=== PATIENT | female | born 1945 | race Caucasian/White ===

== ENCOUNTER 2021-09-02 06:03 | Inpatient (IN) | payer OTHER ==
[2021-08-31 18:26] VITALS: BMI 24.0
[2021-09-02] MEDS ORDERED: MIDAZOLAM HCL 2 MG/2 ML SINGLE DOSE VIAL ONE (06:46)
[2021-09-02] MEDS ORDERED: ROPIVACAINE HCL 0.5% 30ML VIAL ONE (06:46)
[2021-09-02] MEDS ORDERED: DEXAMETHASONE SOD PHOSPHATE 10 MG/1 ML VIAL ONE (06:46)
[2021-09-02] MEDS ORDERED: PROPOFOL 20 ML ONE ×2 (07:19)
[2021-09-02] MEDS ORDERED: SUCCINYLCHOLINE CHLORIDE 200 MG/10 ML SYRINGE ONE (07:19)
[2021-09-02] MEDS ORDERED: ePHEDrine SULFATE 50 MG/1 ML AMPULE ONE (07:24)
[2021-09-02] MEDS ORDERED: TRANEXAMIC ACID 1000 MG/10 ML VIAL ONE (07:29)
[2021-09-02] MEDS ORDERED: VANCOMYCIN 1,000 MG VIAL (RESTRICTED TO ID ONLY) ONE (07:29)
[2021-09-02] MEDS ORDERED: ONDANSETRON 4 MG/2 ML VIAL IVPUSH PRN (07:38)
[2021-09-02] MEDS ORDERED: MAGNESIUM HYDROX 2400MG/30ML ORAL SUSPENSION 30 ML CUP PO PRN (07:38)
[2021-09-02] MEDS ORDERED: MAG HYDROX/AL HYDROX/SIMETH 30 ML UNIT-DOSE CUP PO PRN (07:38)
[2021-09-02] MEDS ORDERED: LACTATED RINGERS SOLUTION 1,000 ML IV SCH (07:45)
[2021-09-02] MEDS ORDERED: BUPIVACAINE LIPOSOME/PF (EXPAREL) 266 MG/20 ML VIAL ONE (07:58)
[2021-09-02] MEDS: ACETAMINOPHEN 1000 MG/100 ML VIAL IVPB ONE ×2 (11:12→12:19)
[2021-09-02] MEDS ORDERED: oxyCODONE HCL 5 MG TABLET PO PRN (11:17)
[2021-09-02] MEDS ORDERED: HYDROmorphone HCL CARPU-JECT 1 MG/1 ML DISP.SYRIN IVPUSH PRN (11:17)
[2021-09-02] MEDS ORDERED: HYDROmorphone HCL/PF 1 MG/ML VIAL ONE (11:27)
[2021-09-02] MEDS ORDERED: HYDROmorphone HCL/PF 1 MG/ML VIAL IVPUSH PRN (12:05)
[2021-09-02] MEDS: MULTIVITAMINS (DAILY MVI) TABLET (FP) PO SCH (12:19)
[2021-09-02] MEDS: PANTOPRAZOLE 40 MG TABLET PO SCH (12:19)
[2021-09-02] MEDS: SENNOSIDES/DOCUSATE COMBO (SENNA PLUS) TABLET (UD) PO SCH ×2 (12:19→22:04)
[2021-09-02] MEDS: oxyCODONE HCL 5 MG TABLET PO PRN ×3 (12:43→19:52)
[2021-09-02] MEDS ORDERED: SUMATRIPTAN SUCCINATE 6 MG/0.5 ML VIAL SQ PRN (13:57)
[2021-09-02] MEDS ORDERED: DEXTROSE 5%-WATER - 50 ML IVPB ONE ×2 (15:59→22:00)
[2021-09-02] MEDS ORDERED: ceFAZolin SODIUM 1 GM VIAL ONE ×2 (15:59→22:00)
[2021-09-02] MEDS: BENZOCAINE/MENTH/CETYLPYRD CL 1 EACH LOZENGE MM PRN ×2 (16:07→19:53)
[2021-09-02] MEDS: CEFAZOLIN 2 GM in DEXTROSE 5%-WATER - 50 ML IVPB SCH (16:07)
[2021-09-02] MEDS ORDERED: VANCOMYCIN 1 GM in D5W (PRE-DOCKED) 1,000 MG/250 ML IVPB ONE (20:25)
[2021-09-02] MEDS ORDERED: PATIENT'S OWN MEDICATION (NON-FORMULARY) (Zolpidem Tartrate [Ambien] 10 MG Tablet) PO SCH (22:00)
[2021-09-02] MEDS: ZOLPIDEM TARTRATE 5 MG TABLET PO PRN (22:04)
[2021-09-02] MEDS: oxyCODONE HCL 10 MG SUSTAINED ACTING TABLET PO SCH (22:04)
[2021-09-03] MEDS: oxyCODONE HCL 5 MG TABLET PO PRN ×6 (00:58→21:36)
[2021-09-03] MEDS: CEFAZOLIN 2 GM in DEXTROSE 5%-WATER - 50 ML IVPB SCH ×2 (00:58→09:37)
[2021-09-03] MEDS ORDERED: ACETAMINOPHEN 325 MG TABLET (FP) PO PRN (08:37)
[2021-09-03 08:59] LABS: HEMATOCRIT 37.2 % (32.4-45.2); HEMOGLOBIN 12.3 GM/dl (10.7-15.3); MCH 29.1 pg (25.7-33.7); MCHC 33.1 g/dl (32.0-36.0); MEAN CELL VOLUME 87.9 fl (80-96); MEAN PLT VOLUME 10.1 fl (7.5-11.1); PLATELET COUNT 228 10^3/uL (134-434); RBC 4.24 M/mm3 (3.60-5.2); RDW 14.1 % (11.6-15.6)
[2021-09-03 09:03] LABS: CALCIUM 9.5 mg/dl (8.5-10)
[2021-09-03] MEDS ORDERED: DEXTROSE 5%-WATER - 50 ML IVPB ONE (09:23)
[2021-09-03] MEDS ORDERED: ceFAZolin SODIUM 1 GM VIAL ONE (09:23)
[2021-09-03] MEDS: ASPIRIN 325 MG ENTERIC COATED TABLET (FP) PO SCH (09:35)
[2021-09-03] MEDS: PANTOPRAZOLE 40 MG TABLET PO SCH (09:35)
[2021-09-03] MEDS: SENNOSIDES/DOCUSATE COMBO (SENNA PLUS) TABLET (UD) PO SCH ×2 (09:36→21:35)
[2021-09-03] MEDS: oxyCODONE HCL 10 MG SUSTAINED ACTING TABLET PO SCH ×3 (09:38→21:36)
[2021-09-03] MEDS: MULTIVITAMINS (DAILY MVI) TABLET (FP) PO SCH (09:41)
[2021-09-03] MEDS ORDERED: POTASSIUM CHLORIDE TABS 20 MEQ TABLET.ER (FP) PO SCH (10:00)
[2021-09-03] MEDS ORDERED: FUROSEMIDE 20 MG TABLET (FP) PO SCH (10:00)
[2021-09-03] MEDS: ACETAMINOPHEN 325 MG TABLET (FP) PO PRN ×2 (11:04→22:33)
[2021-09-03] MEDS: ZOLPIDEM TARTRATE 5 MG TABLET PO PRN (21:35)
[2021-09-03] MEDS ORDERED: metoPROLOL SUCCINATE 25 MG TAB.SR.24H (FP) PO ONE (22:21)
[2021-09-04] MEDS: oxyCODONE HCL 5 MG TABLET PO PRN ×5 (00:45→19:40)
[2021-09-04] MEDS: ACETAMINOPHEN 325 MG TABLET (FP) PO PRN (06:30)
[2021-09-04 08:19] LABS: CALCIUM 8.8 mg/dl (8.5-10)
[2021-09-04 08:25] LABS: HEMATOCRIT 36.4 % (32.4-45.2); HEMOGLOBIN 12.1 GM/dl (10.7-15.3); MCH 28.8 pg (25.7-33.7); MCHC 33.1 g/dl (32.0-36.0); MEAN CELL VOLUME 87.1 fl (80-96); PLATELET COUNT 223 10^3/uL (134-434); RBC 4.18 M/mm3 (3.60-5.2); RDW 14.1 % (11.6-15.6); WHITE BLOOD COUNT 9.8 K/mm3 (4.0-10.8)
[2021-09-04] MEDS ORDERED: PT OWN MED DRAWER 7, Y5N ONE ×2 (09:12→09:33)
[2021-09-04] MEDS: ASPIRIN 325 MG ENTERIC COATED TABLET (FP) PO SCH (09:39)
[2021-09-04] MEDS: SENNOSIDES/DOCUSATE COMBO (SENNA PLUS) TABLET (UD) PO SCH ×2 (09:39→22:19)
[2021-09-04] MEDS: MULTIVITAMINS (DAILY MVI) TABLET (FP) PO SCH (09:39)
[2021-09-04] MEDS: PANTOPRAZOLE 40 MG TABLET PO SCH (09:40)
[2021-09-04] MEDS: oxyCODONE HCL 10 MG SUSTAINED ACTING TABLET PO SCH ×2 (09:41→22:19)
[2021-09-04] MEDS ORDERED: FUROSEMIDE 20 MG TABLET (FP) PO SCH (10:00)
[2021-09-04] MEDS: POLYETHYLENE GLYCOL (HEALTHYLAX) 3350 17 GM PACKET PO SCH (12:00)
[2021-09-04] MEDS ORDERED: BISACODYL 10 MG SUPP.RECT PR PRN (12:51)
[2021-09-04] MEDS: ACETAMINOPHEN 500 MG TABLET (FP) PO SCH ×3 (14:38→22:20)
[2021-09-04] MEDS: ZOLPIDEM TARTRATE 5 MG TABLET PO PRN (22:19)
[2021-09-05] MEDS: oxyCODONE HCL 5 MG TABLET PO PRN ×4 (02:29→13:00)
[2021-09-05] MEDS: ACETAMINOPHEN 500 MG TABLET (FP) PO SCH ×2 (05:39→11:50)
[2021-09-05] MEDS ORDERED: PT OWN MED DRAWER 7, Y5N ONE ×3 (06:38→12:30)
[2021-09-05] MEDS: oxyCODONE HCL 10 MG SUSTAINED ACTING TABLET PO SCH (09:28)
[2021-09-05] MEDS: ASPIRIN 325 MG ENTERIC COATED TABLET (FP) PO SCH (09:28)
[2021-09-05] MEDS: SENNOSIDES/DOCUSATE COMBO (SENNA PLUS) TABLET (UD) PO SCH (09:29)
[2021-09-05] MEDS: PANTOPRAZOLE 40 MG TABLET PO SCH (09:32)
[2021-09-05] MEDS: MULTIVITAMINS (DAILY MVI) TABLET (FP) PO SCH (09:32)
[2021-09-05] MEDS: POLYETHYLENE GLYCOL (HEALTHYLAX) 3350 17 GM PACKET PO SCH (09:32)
[2021-09-05] MEDS ORDERED: FUROSEMIDE 20 MG TABLET (FP) PO SCH (10:00)
[2021-09-05] MEDS ORDERED: POTASSIUM CHLORIDE TABS 20 MEQ TABLET.ER (FP) PO SCH (10:00)
[2021-09-05 12:29] VITALS: BP 149/73; PULSE 67; TEMP 97.9
== END 2021-09-05 15:13 | disposition home health service (06) | DRG 483 ==
LOC: FM/S 06:03
PROVIDERS: ADMIT Orthopaedic Surgery; ATTEND Nurse Practitioner Acute Care
PROC: 0LS40ZZ Reposition Left Upper Arm Tendon, Open Approach (ICD-10-PCS; 2021-09-02)
PROC: 0RRK00Z Replacement of Left Shoulder Joint with Reverse Ball and Socket Synthetic Substitute, Open Approach (ICD-10-PCS; principal; 2021-09-02 08:52)
DX: M19.012 Primary osteoarthritis, left shoulder (principal); E87.1 Hypo-osmolality and hyponatremia; M75.22 Bicipital tendinitis, left shoulder; I10 Essential (primary) hypertension; G43.909 Migraine, unspecified, not intractable, without status migrainosus; Z86.16 Personal history of COVID-19; M48.061 Spinal stenosis, lumbar region without neurogenic claudication; G89.4 Chronic pain syndrome
CPT/HCPCS: 36415; 73030-TC-LT-FY; 80048; 85027; 88304-TC; 88311-TC; 94010; 94760; 97116-GP; 97162-GP; C9803; J0131; J1100; U0003; U0005

== ENCOUNTER 2023-12-24 06:13 | Day surgery (SDC) | payer OTHER ==
[2023-12-18 15:28] VITALS: BMI 24.0
[2023-12-24] MEDS ORDERED: oxyCODONE HCL 5 MG TABLET PO PRN (07:12)
[2023-12-24] MEDS ORDERED: VANCOMYCIN 1,000 MG VIAL (RESTRICTED TO ID ONLY) ONE ×2 (07:21→08:10)
[2023-12-24] MEDS ORDERED: TRANEXAMIC ACID 1000 MG/10 ML VIAL ONE ×2 (07:21→08:10)
[2023-12-24] MEDS ORDERED: MIDAZOLAM HCL 2 MG/2 ML SINGLE DOSE VIAL ONE (07:26)
[2023-12-24] MEDS ORDERED: ACETAMINOPHEN INJECTION 100 ML IVPB ONE (07:26)
[2023-12-24] MEDS ORDERED: BUPIVACAINE LIPOSOME/PF (EXPAREL) 266 MG/20 ML VIAL ONE (07:26)
[2023-12-24] MEDS ORDERED: BUPIVACAINE HCL/PF 0.5% (5MG/ML) 10 ML VIAL ONE (07:26)
[2023-12-24] MEDS ORDERED: PROPOFOL 20 ML ONE (07:51)
[2023-12-24] MEDS ORDERED: ceFAZolin SODIUM 1 GM VIAL ONE ×2 (08:10)
[2023-12-24] MEDS ORDERED: SUCCINYLCHOLINE CHLORIDE 200 MG/10 ML SYRINGE ONE (08:51)
[2023-12-24] MEDS ORDERED: KETOROLAC TROMETHAMINE 30 MG/1 ML VIAL ONE (09:11)
[2023-12-24] MEDS ORDERED: ONDANSETRON 4 MG/2 ML VIAL ONE (09:11)
[2023-12-24] MEDS: TRANEXAMIC ACID 1000 MG/10 ML VIAL IVPB ONE (09:41)
[2023-12-24] MEDS: VANCOMYCIN 1,000 MG VIAL (RESTRICTED TO ID ONLY) IVPB ONE (09:47)
[2023-12-24] MEDS ORDERED: MAGNESIUM HYDROX 2400MG/30ML ORAL SUSPENSION 30 ML CUP PO PRN (09:59)
[2023-12-24] MEDS ORDERED: MAG HYDROX/AL HYDROX/SIMETH 30 ML UNIT-DOSE CUP PO PRN (09:59)
[2023-12-24] MEDS ORDERED: HYDROmorphone HCL/PF 1 MG/ML VIAL IVPUSH PRN (10:40)
[2023-12-24] MEDS ORDERED: FENTANYL CITRATE/PF 50 MCG/ML VIAL ONE (10:55)
[2023-12-24] MEDS: LIDOCAINE 5% TOPICAL PATCH TP ONE (11:16)
[2023-12-24] MEDS: LACTATED RINGERS SOLUTION 1,000 ML IV SCH ×2 (13:35→14:16)
[2023-12-24] MEDS: HYDROCHLOROTHIAZIDE 25 MG TABLET (FP) PO SCH (13:35)
[2023-12-24] MEDS: CEFAZOLIN 2 GM in DEXTROSE 5%-WATER - 100 ML IVPB ONE (13:35)
[2023-12-24] MEDS: GABAPENTIN 300 MG CAPSULE PO SCH (13:35)
[2023-12-24] MEDS: PATIENT'S OWN MEDICATION (NON-FORMULARY) (Oxycodone Hcl [Oxycodone Hcl] 10 MG Tablet) PO SCH (13:36)
[2023-12-24] MEDS: MULTIVITAMINS (DAILY MVI) TABLET (FP) PO SCH (13:36)
[2023-12-24] MEDS: ACETAMINOPHEN 500 MG TABLET (FP) PO SCH (13:36)
[2023-12-24] MEDS: PANTOPRAZOLE 40 MG TABLET PO SCH (13:36)
[2023-12-24] MEDS: SENNOSIDES/DOCUSATE COMBO (SENNA PLUS) TABLET (UD) PO SCH (13:36)
[2023-12-24] MEDS: oxyCODONE HCL 5 MG TABLET PO PRN ×2 (13:49→20:04)
[2023-12-24] MEDS: oxyCODONE HCL 5 MG TABLET PO SCH ×2 (17:31→22:23)
[2023-12-24] MEDS: CEFAZOLIN SODIUM 2 GM in DEXTROSE 5%-WATER 100 ML IVPB SCH (17:33)
[2023-12-24] MEDS: ZOLPIDEM TARTRATE 5 MG TABLET PO PRN (22:25)
[2023-12-24] MEDS: LIDOCAINE PATCH REMOVAL MC SCH (23:22)
[2023-12-25] MEDS: ASPIRIN 325 MG TABLET PO SCH (08:58)
[2023-12-25] MEDS: VANCOMYCIN/WATER FOR INJ (PEG) 1 GM/200 ML BAG IVPB SCH (09:35)
[2023-12-25] MEDS: ONDANSETRON 4 MG/2 ML VIAL IVPUSH PRN (22:32)
[2023-12-26] MEDS: BENZOCAINE/MENTH/CETYLPYRD CL 1 EACH LOZENGE MM PRN (06:18)
[2023-12-26] MEDS: ACETAMINOPHEN 325 MG TABLET (FP) PO PRN (06:33)
[2023-12-26 08:27] LABS: HEMATOCRIT 31.6 % (32.4-45.2); HEMOGLOBIN 10.5 G/dL (10.7-15.3); MCH 29.5 pg (25.7-33.7); MCHC 33.1 g/dl (32.0-36.0); MEAN CELL VOLUME 89.3 fl (80-96); MEAN PLT VOLUME 9.4 fl (7.5-11.1); PLATELET COUNT 216.6 10^3/uL (134-434); RBC 3.54 10^6/uL (3.60-5.2); WHITE BLOOD COUNT 9.4 10^3/uL (4.0-10.8)
[2023-12-26 09:12] LABS: ALBUMIN 3.3 g/dl (3.4-5.0); BILIRUBIN,TOTAL 0.5 mg/dl (0.2-1); CALCIUM 8.5 mg/dl (8.5-10.1); POTASSIUM 4.2 mmol/L (3.5-5.1); TOT PROT 5.3 g/dl (6.4-8.2)
[2023-12-26 13:56] VITALS: BP 149/63; PULSE 59; RESP 18; TEMP 98
== END 2023-12-26 14:40 ==
LOC: FASUSAT 06:13 → SUATTDRO 06:13 → FM/S 11:35 → FASUSAT 12-26 14:40
PROC: 0LS30ZZ Reposition Right Upper Arm Tendon, Open Approach (ICD-10-PCS; 2023-12-24)
PROC: 0RRJ0JZ Replacement of Right Shoulder Joint with Synthetic Substitute, Open Approach (ICD-10-PCS; principal; 2023-12-24 08:23)
DX: M19.011 Primary osteoarthritis, right shoulder (principal); M75.101 Unspecified rotator cuff tear or rupture of right shoulder, not specified as traumatic; M75.21 Bicipital tendinitis, right shoulder
CPT/HCPCS: 36415; 73030-TC-RT-FY; 80053; 85027; 88304-TC; 88305-TC; 88311-TC; 94760; 97116-GP; 97162-GP; C1713; C1776; C1889; J0131